=== PATIENT | male | born 1995 | race Hispanic/Latino ===

== ENCOUNTER 2022-07-07 11:00 | Observation (INO) | payer OTHER ==
[~2022-07-07] VITALS: Ht 170.2 cm; Wt 88.5 kg
[2022-07-08 11:57] LABS: BASOPHILS % (AUTO) 0.7 % (0.0-5.0); EOSINOPHILS % (AUTO) 1.8 % (0.0-8.0); HEMATOCRIT 48.6 % (42-54); LYMPHOCYTES % (AUTO) 32.1 % (21.0-51.0); MEAN CORPUSCULAR HEMOGLOBIN 29.7 pg (27.0-33.0); MEAN CORPUSCULAR HGB CONC 34.8 g/dL (32.0-36.0); MEAN CORPUSCULAR VOLUME 85.4 fL (79-99); MONOCYTES % (AUTO) 8.7 % (3.0-13.0); PLATELET COUNT (AUTO) 244 K/uL (130-400); RED BLOOD CELL COUNT(AUTO) 5.69 MIL/uL (4.50-6.20); WHITE BLOOD COUNT (AUTO) 7.3 K/uL (4.8-10.8)
[2022-07-08 12:07] LABS: POTASSIUM 3.8 mmol/L (3.5-5.1)
[2022-07-08 13:18] VITALS: BP 149/99
[2022-07-08] MEDS ORDERED: IBUP-2077 PO (13:37)
[2022-07-09] VITALS (23 sets, daily range): BP systolic 114–145; BP diastolic 58–93
[2022-07-09] MEDS: CEFAZOLIN SODIUM 1 GM VIAL IVP SCH ×5 (06:30→19:23)
[2022-07-09] MEDS ORDERED: LACTATED RINGERS 1000ML 1,000 ML IV ONE (06:33)
[2022-07-09] MEDS ORDERED: PROPOFOL 10 MG/ML 20ML VIAL IV ONE (06:49)
[2022-07-09] MEDS ORDERED: GLYCOPYRROLATE 1 MG/5 ML SYRINGE ONE ×2 (06:49→10:38)
[2022-07-09] MEDS ORDERED: DEXAMETHASONE SOD PHOSPHATE 10MG/ML 1ML VIAL ONE ×2 (06:49→06:59)
[2022-07-09] MEDS ORDERED: MIDAZOLAM HCL 1 MG/ML 2ML VIAL ONE (06:49)
[2022-07-09] MEDS ORDERED: SUCCINYLCHOLINE CHLORIDE 20 MG/ML 10 ML VIAL ONE (06:49)
[2022-07-09] MEDS ORDERED: LIDOCAINE PF 100MG/5ML (2%) SYRINGE 5ML ONE (06:49)
[2022-07-09] MEDS ORDERED: ONDANSETRON 4MG INJ ONE ×2 (06:50→10:06)
[2022-07-09] MEDS ORDERED: FENTANYL CITRATE PF 50 MCG/1 ML 2ML VIAL ONE ×3 (06:50→10:06)
[2022-07-09] MEDS ORDERED: ROCURONIUM 10MG/1ML SYR 10 MG/ML ML ONE ×2 (06:50→08:03)
[2022-07-09] MEDS ORDERED: NEOSTIGMINE 5MG/5ML SYR IV ONE (06:50)
[2022-07-09] MEDS ORDERED: BUPIVACAINE/EPI/PF 0.25% 30ML VIAL IJ ONE (06:53)
[2022-07-09] MEDS ORDERED: THROMBIN-JMI 20000 UNIT KIT TP ONE (06:53)
[2022-07-09] MEDS ORDERED: CEFAZOLIN SODIUM 1 GM VIAL ONE (06:53)
[2022-07-09] MEDS ORDERED: THROMBIN-JMI 5000 UNIT/VIAL TP ONE (07:10)
[2022-07-09] MEDS ORDERED: PHENYLEPHRINE HCL 10 MG/ML 1ML VIAL IV ONE (08:10)
[2022-07-09] MEDS ORDERED: ARTIFICIAL TEARS 3.5 GM OINTMENT ONE (08:10)
[2022-07-09] MEDS ORDERED: 0.9%NACL 10ML VIAL IVP PRN (11:30)
[2022-07-09] MEDS ORDERED: PROMETHAZINE HCL 25 MG/ML 1ML AMPULE IM PRN (11:30)
[2022-07-09] MEDS: LACTATED RINGERS 1000ML 1,000 ML IV SCH ×2 (11:30→19:23)
[2022-07-09] MEDS ORDERED: HYDROCODONE/ACETAMINOPHEN 5/325 MG TAB PO PRN (11:30)
[2022-07-09] MEDS ORDERED: MORPHINE 2 MG SYG IVP PRN (11:30)
[2022-07-09] MEDS: DEXAMETHASONE SOD PHOSPHATE 4 MG/ML 1ML VIAL IVP SCH ×3 (13:25→23:45)
[2022-07-09] MEDS ORDERED: BENZOCAINE/MENTH/CETYLPYRD CL 1 EACH LOZENGE MM PRN (20:30)
[2022-07-10 03:36] VITALS: BP 120/70
[2022-07-10] MEDS: DEXAMETHASONE SOD PHOSPHATE 4 MG/ML 1ML VIAL IVP SCH (05:31)
[2022-07-10 08:00] VITALS: BP 141/88
[2022-07-10] MEDS ORDERED: KETO10 PO (10:37)
== END 2022-07-10 12:30 | disposition home or self-care (01) ==
LOC: DAHIP 07-09 05:46 → EDSTATUS 07-09 07:30 → 4CH 07-09 11:44
PROVIDERS: ADMIT Neurological Surgery; ATTEND Neurological Surgery
DX: M54.12 Radiculopathy, cervical region (principal); Z20.822 Contact with and (suspected) exposure to COVID-19; M25.78 Osteophyte, vertebrae; Z79.899 Other long term (current) drug therapy; Z98.890 Other specified postprocedural states
CPT/HCPCS: 80051; 85025; 87426; 36415; 71045; 22554; 22853 ×2; 20930; 22845; 96374; 96376 ×2; 96372; 96375; 72020; G0378 ×24; G0379; J7030; A4344; A4649 ×2; J7120; J3010 ×3; J0690 ×3; J3490 ×4; J1100 ×6; J2710; J0330; J2550; J2001; J2250; J2704; J2405 ×2; J2370; C1713; A4215; A4223; A4222; A4221; A4663; A4600; A4510